=== PATIENT | female | born 1990 | race Caucasian/White ===

== ENCOUNTER → 2016-09-17 | Outpatient (CLI) | payer SELFPAY ==
[~2016-09-17] MED LIST: ADDERALL5 MG PO; AMOXICILLIN 50500 MG PO; ATIVAN0.5 MG PO; BCP TD; CYMBALTA; LORTAB 5/500 501 TAB PO; NO HOME MEDICATIONS; SERTRALINE; WELLBUTRIN75 MG PO
== END ==
LOC: BHSO 09:40
DX: F90.0 Attention-deficit hyperactivity disorder, predominantly inattentive type (principal)

== ENCOUNTER → 2017-02-01 | Outpatient (CLI) | payer BC | LOC: BHSO 10:44 | DX: F90.0 Attention-deficit hyperactivity disorder, predominantly inattentive type (principal) ==

== ENCOUNTER 2017-06-15 14:40 | Emergency (ER) | payer BC ==
[~2017-06-15] VITALS: Ht 154.9 cm; Wt 68.2 kg
[2017-06-15 14:42] VITALS: TEMP 98.4
[2017-06-15] MEDS ORDERED: PRILOSEC 20MG20 MG PO (15:11)
[2017-06-15 15:25] LABS: COLLECTION METHOD CLEAN CATCH
[2017-06-15 15:30] LABS: BASO # 0.1 (0.0-0.2); BASO % 0.5 % (0.0-2.0); EOS # 0.1 (0.0-0.7); EOS % 0.8 % (0-4.0); GRAN # 5.9 (1.4-6.5); GRAN % 56.7 % (42.2-75.2); HEMATOCRIT 40.4 % (37.0-47.0); HEMOGLOBIN 13.9 g/dl (12.5-16.0); LYMPH # 3.6 (1.2-3.4); MEAN CELL VOLUME 92 fl (80.0-100.0); MEAN CORPUSCULAR HEMOGLOBIN 32 pg (27.0-31.0); MEAN CORPUSCULAR HGB CONC 34 g/dl (33.0-37.0); MEAN PLATELET VOLUME 10.6 fl (7.4-10.4); MONO # 0.7 (0.1-0.6); MONO % 6.7 % (1.7-9.3); PLATELET COUNT 255 K/mm3 (130-400); WHITE BLOOD COUNT 10.4 K/mm3 (4.8-10.8)
[2017-06-15 15:37] LABS: PH 7 (5-8); URINE APPEARANCE Clear; URINE BACTERIA Rare /hpf; URINE BILIRUBIN Negative (NEGATIVE); URINE BLOOD 1+ (NEGATIVE); URINE COLOR Straw; URINE GLUCOSE Negative (NEGATIVE); URINE KETONE Negative (NEGATIVE); URINE LEUKOCYTE ESTERASE Trace (NEGATIVE); URINE PROTEIN(semi-quant) Negative (NEGATIVE); URINE RBC 0-2 /hpf; URINE UROBILINOGEN Negative (NEGATIVE)
[2017-06-15 15:41] LABS: ADJUSTED CALCIUM 8.3 mg/dL (8.4-10.2); ALANINE AMINOTRANSFERASE 32 U/L (9-52); ALBUMIN 4.8 gm/dL (3.5-5.0); ALCOHOL(ethanol),MEDICAL 86 mg/dL; ALKALINE PHOSPHATASE 57 U/L (50-136); ANION GAP 12 mmol/L (7-16); BILIRUBIN,TOTAL 0.6 mg/dL (0.0-1.0); BLOOD UREA NITROGEN 10 mg/dL (7-17); CALCIUM 8.9 mg/dL (8.4-10.2); CARBON DIOXIDE 21 mmol/L (22-30); CHLORIDE 106 mmol/L (98-107); CREATININE, serum 0.73 mg/dL (0.52-1.25); GLUCOSE 81 mg/dL (74-106); LIPASE 54 U/L (23-300); POTASSIUM 3.9 mmol/L (3.4-5.0); SODIUM 139 mmol/L (137-145); TOTAL PROTEIN 7.8 gm/dL (6.4-8.2)
[2017-06-15 16:01] LABS: C-REACTIVE PROTEIN < 0.5 mg/dL (0.0-0.9)
[2017-06-15] MEDS ORDERED: PROTONIX 40MG T40 MG PO (16:21)
[2017-06-15] MEDS ORDERED: ZOFRAN 4MG T4 MG/TAB PO (16:21)
[2017-06-15 16:27] VITALS: BP 130/68; PULSE 82
== END 2017-06-15 16:28 | disposition home or self-care (01) ==
LOC: COL.ER 14:40
PROVIDERS: Emergency Medicine
DX: F10.10 Alcohol abuse, uncomplicated (principal); R11.10 Vomiting, unspecified; R10.9 Unspecified abdominal pain; F32.9 Major depressive disorder, single episode, unspecified; F90.9 Attention-deficit hyperactivity disorder, unspecified type; Y90.4 Blood alcohol level of 80-99 mg/100 ml
CPT/HCPCS: J2405; J2550; J7030

== ENCOUNTER → 2017-07-26 | Outpatient (CLI) | payer BC ==
[~2017-07-26] MED LIST changes: +PRILOSEC 20MG20 MG PO; +PROTONIX 40MG T40 MG PO; +ZOFRAN 4MG T4 MG/TAB PO
== END ==
LOC: BHSO 08:13
DX: F90.0 Attention-deficit hyperactivity disorder, predominantly inattentive type (principal)
CPT/HCPCS: G0463

== ENCOUNTER → 2017-12-31 | Outpatient (CLI) | payer BC | LOC: BHSO 10:24 | DX: F90.0 Attention-deficit hyperactivity disorder, predominantly inattentive type (principal) ==

== ENCOUNTER → 2018-08-15 | Outpatient (CLI) | payer BC | LOC: BHSO 10:19 | DX: F90.0 Attention-deficit hyperactivity disorder, predominantly inattentive type (principal) | CPT/HCPCS: G0463 ==

== ENCOUNTER → 2019-03-25 | Outpatient (CLI) | payer BC | LOC: BHSO 10:26 | DX: F90.0 Attention-deficit hyperactivity disorder, predominantly inattentive type (principal) | CPT/HCPCS: G0463 ==

== ENCOUNTER → 2019-05-29 | Outpatient (CLI) | payer BC | LOC: BHSO 10:42 | DX: F31.81 Bipolar II disorder (principal) | CPT/HCPCS: G0463 ==

== ENCOUNTER → 2019-08-28 | Outpatient (CLI) | payer BC | LOC: BHSO 10:39 | DX: F90.0 Attention-deficit hyperactivity disorder, predominantly inattentive type (principal) | CPT/HCPCS: G0463 ==

== ENCOUNTER → 2020-03-08 | Outpatient (CLI) | payer BC | LOC: BHSO 09:38 | DX: F90.0 Attention-deficit hyperactivity disorder, predominantly inattentive type (principal) | CPT/HCPCS: G0463 ==

== ENCOUNTER 2020-08-10 18:14 | Emergency (ER) | payer BC ==
[~2020-08-10] VITALS: Ht 157.5 cm; Wt 70.5 kg
[2020-08-10 18:39] VITALS: BP 132/89; TEMP 98.2
[2020-08-10] MEDS ORDERED: ABILIFY 15MG TA15 MG PO (19:23)
[2020-08-10 20:48] VITALS: PULSE 86
== END 2020-08-10 20:46 | disposition home or self-care (01) ==
LOC: COL.ER 18:14
DX: S01.81XA Laceration without foreign body of other part of head, initial encounter (principal); Z88.2 Allergy status to sulfonamides; W21.89XA Striking against or struck by other sports equipment, initial encounter; Y93.53 Activity, golf

== ENCOUNTER → 2020-08-19 | Outpatient (CLI) | payer BC ==
[~2020-08-19] MED LIST changes: +ABILIFY 15MG TA15 MG PO
[2020-08-19 11:06] VITALS: BP 134/82; PULSE 92; TEMP 98.3
== END ==
LOC: COL.ER 10:56
DX: Z48.00 Encounter for change or removal of nonsurgical wound dressing (principal)